=== PATIENT | female | born 1990 | race Caucasian/White ===

== ENCOUNTER 2018-10-01 10:28 | Emergency (ER) | payer SELFPAY ==
[2018-10-01] VITALS (10 sets, daily range): BP systolic 101–129; BP diastolic 58–73
[~2018-10-01] VITALS: Ht 160 cm; Wt 52.2 kg
[2018-10-01] MEDS ORDERED: Haloperidol 5mg/ml Inj IM ONE (10:30)
[2018-10-01] MEDS ORDERED: LORazepam Inj 2mg/ml 1ml IM ONE (10:30)
[2018-10-01] MEDS ORDERED: LORazepam Inj 2mg/ml 1ml ONE ×2 (10:35→10:43)
[2018-10-01] MEDS ORDERED: Haloperidol 5mg/ml Inj ONE ×2 (10:35→10:43)
[2018-10-01 11:41] LABS: BASOPHILS % (AUTO) 0.8 % (0.0-2.0); EOSINOPHILS % (AUTO) 1.2 % (0.0-3.0); HEMATOCRIT 36.7 % (37.0-47.0); HEMOGLOBIN 12.3 G/DL (12.0-16.0); LYMPHOCYTES % (AUTO) 31.7 % (20.0-45.0); MEAN CORPUSCULAR VOLUME 96 FL (80-99); NEUTROPHILS % (AUTO) 60.2 % (45.0-75.0); PLATELET COUNT 259 K/UL (150-450); RED BLOOD COUNT 3.84 M/UL (4.20-5.40); WHITE BLOOD COUNT 5.9 K/UL (4.8-10.8)
[2018-10-01 11:51] LABS: ANION GAP 15 mmol/L (5-15); BLOOD UREA NITROGEN 11 mg/dL (7-18); CALCIUM 8.8 MG/DL (8.5-10.1); CARBON DIOXIDE 22 MMOL/L (21-32); CHLORIDE 103 MMOL/L (98-107); CREATININE 0.7 MG/DL (0.55-1.30); POTASSIUM 4.6 MMOL/L (3.5-5.1); SODIUM 140 MMOL/L (136-145)
[2018-10-01 12:03] LABS: ALANINE AMINOTRANSFERASE 26 U/L (12-78); ALBUMIN 3.7 G/DL (3.4-5.0); ALBUMIN/GLOBULIN RATIO 0.8 (1.0-2.7); ALKALINE PHOSPHATASE 67 U/L (46-116); ASPARTATE AMINO TRANSFERASE 56 U/L (15-37); BILIRUBIN,TOTAL 0.4 MG/DL (0.2-1.0)
[2018-10-01 12:05] LABS: APPEARANCE,URINE CLEAR; BILIRUBIN, URINE NEGATIVE (NEGATIVE); GLUCOSE, URINE (UA) NEGATIVE (NEGATIVE); KETONES,URINE 3+ (NEGATIVE); LEUKOCYTE ESTERASE ,URINE NEGATIVE (NEGATIVE); NITRITE,URINE NEGATIVE (NEGATIVE); PH,URINE 6 (4.5-8.0); PROTEIN,URINE 1+ (NEGATIVE); UROBILINOGEN,URINE NORMAL MG/DL (0.0-1.0)
[2018-10-01 12:20] LABS: COLOR,URINE YELLOW
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
[2018-10-01] MEDS ORDERED: Loperamide 2mg cap ORAL ONE (17:30)
[2018-10-01] MEDS ORDERED: AMBIEN10 M1 ORAL (17:53)
[2018-10-01] MEDS ORDERED: LAMICTAL25 MG ORAL (17:53)
[2018-10-01] MEDS ORDERED: ADDERALL 20 MG20 MG ORAL (17:53)
[2018-10-02 02:00] VITALS: BP 118/74
[2018-10-02] MEDS ORDERED: Acetaminophen 500mg (ES) tab ORAL ONE (02:30)
[2018-10-02 05:00] VITALS: BP 111/71
[2018-10-02 07:32] VITALS: BP 106/74
[2018-10-02 10:35] VITALS: BP 121/80
== END 2018-10-02 10:35 ==
LOC: EDBD 10:28 → EMR 11:19
DX: F29 Unspecified psychosis not due to a substance or known physiological condition (principal); F19.10 Other psychoactive substance abuse, uncomplicated; R46.89 Other symptoms and signs involving appearance and behavior; Z91.14 Patient's other noncompliance with medication regimen
CPT/HCPCS: 36415; 80053; 80307; 81003; 81025; 84439; 84443; 85025; 96372; 99284; G0480; J1630; 80329